=== PATIENT | female | born 1955 | race Caucasian/White ===

== ENCOUNTER 2024-12-01 09:15 | Inpatient (IN) | payer MEDICARE, SELFPAY ==
[2024-11-28 14:54] VITALS: BMI 27.1
[2024-11-28 15:21] VITALS: BP 112/80
[2024-11-28 15:49] VITALS: BP 115/86
[2024-11-28 16:00] VITALS: BP 106/73
--- NOTE | 2024-11-28 16:57 | ED.GENMED ---
History of Present Illness
General
Chief Complaint: Fever
Source: patient
Exam Limitations: none
Time Seen by Provider: 11/28/24 16:29
Nursing documentation reviewed up to this point in time: agreed with
History of Present Illness
History of Present Illness:
68 yo female presents emerged part due to a fever. History of alcohol abuse, poor historian. She comes from [facility], where her oxygen was 84 to 89% on room air and her temperature was 104.
Past History
Past History
ED Past Medical History: HTN, Hypercholesterolemia, NIDDM and Other (Anemia, alcohol dependence with delirium)
ED Past Surgical History: None
Social History
Tobacco: Non-smoker
Alcohol: Chronic alcoholic
Drug: None
Living: with family
Review of Systems
Review of Systems
Allergies reviewed?: Yes
All Other Systems: Not applicable
Constitutional: Reports fever
EENT: Reports no symptoms
Respiratory: Reports cough and trouble breathing
Cardiac: Reports no symptoms
ABD/GI: Reports no symptoms
: Reports no symptoms
Musculoskeletal: Reports no symptoms
Skin: Reports no symptoms
Neurological: Reports no symptoms
Endocrine: Reports no symptoms
Hematologic/Lymphatic: Reports no symptoms
Psychiatric: Reports no symptoms
Phy Exam
Physical Exam
Physical Exam:
Physical Exam
General: Temperature 99.8
Neck: supple. no meningeal signs. normal posterior pharynx
Heart: s1/s2 regular rate and rhythm, no murmur. equal radial
pulses.
HEENT: Pupils equal round reactive to light, EOMI
Lungs: no acute respiratory distress. clear bilaterally
Abdomen: normal bowel sounds. not tender. no CVAT
Neuro: alert and oriented to person. no focal neurological deficits cranial nerves II through XII intact
Skin: no rash
Psychiatric: well kept. interactive and cooperative
Extremities: no edema. no calf tenderness. negative homans. good distal pulses
Course
Orders/Labs/Results
Orders:
Orders
11/28/24 16:24
Cardiac Monitoring- Treatment ONCE
O2 Therapy [RESP] Urgent
Titrate/Wean O2 to maintain O2 sat greater than (%): 93
Special Instructions: TO MAINTAIN CONTINUOUS O2 SATS > OR = 93%
Pulse Ox/cont/shift [RESP] Urgent
Quantity: 1
Special Instructions: CONTINUOUS
11/28/24 16:36
CR Chest - 2 Views Urgent
Comment:
Reason For Exam: fever, hypoxia
11/28/24 17:15
CMP [Comprehensive Metabolic Panel] Urgent
COVID-19 Antigen Routine
Source: Nasal Swab
Complete Blood Count/With Diff Urgent
Lactic Acid Q4H
Comment: ON ICE, CANCEL 2ND ORDER IF FIRST LACTIC ACID LEVEL <2
Blood Culture Q20M
ART Source: Blood/Venous
Specimen Description:
Comment: Urgent from separate sites. If patient screens positive for possible sepsis
Influenza A+B Rapid Molecular Routine
ART Source: Nasal Swab
Specimen Description:
11/28/24 18:09
Blood Culture Q20M
ART Source: Blood/Venous
Specimen Description:
Comment: Urgent from separate sites. If patient screens positive for possible sepsis
11/28/24 18:12
Acetaminophen [Tylenol] 650 mg PO NOW STA
Piperacillin/Tazo 4.5 Gram [Zosyn] 4.5 gram in 100 ml IV NOW
11/28/24 19:08
Vancomycin [Vancocin] 1,500 mg 0.9% Sodium Chloride 500 ml [Nss] 500 ml IV NOW
Abnormal Lab Results
11/28/24
17:15
WBC 12.7 H 10^3/uL
(4.8-10.8)
RBC 4.03 L 10^6/uL
(4.20-5.40)
MCHC 32.7 L g/dL
(33.0-37.0)
Abs Immat Gran (auto) 0.1 H 10^3/uL
(0-0.05)
Absolute Neuts (auto) 10.7 H 10^3/uL
(1.4-6.5)
Absolute Monos (auto) 0.7 H 10^3/uL
(0.1-0.6)
Neutrophils % 84.3 H %
(42.2-75.2)
Lymphocytes % 9.6 L %
(20.5-51.1)
Sodium 134 L mmol/L
(135-145)
Creatinine 0.5 L mg/dL
(0.6-1.0)
Glucose 113 H mg/dl
(70-99)
11/28/24 17:15
11/28/24 17:15
Vital Signs
Initial and Last Documented VS:
Initial Vital Signs
Temp Pulse Resp BP Pulse Ox
99.8 F 111 20 112/80 96
11/28/24 15:21 11/28/24 15:21 11/28/24 15:21 11/28/24 15:21 11/28/24 15:21
Last Documented Vital Signs
Temp Pulse Resp BP Pulse Ox
100.5 F H 120 24 120/75 98
11/28/24 19:16 11/28/24 19:17 11/28/24 19:17 11/28/24 19:17 11/28/24 16:00
MDM/Problems Addressed
Differential Diagnosis Includes:
Pneumonia, CHF
MDM/Problems Addressed:
[id number] female with bilateral pneumonia, hypoxia. IV Zosyn and vancomycin given. Admitted to hospitalist.
Chronic conditions affecting care: HTN
*Radiology
Radiology exam reviewed: radiology read reviewed (Chest x-ray bilateral pneumonia)
*Pulse Oximetry
Patient hypoxic: yes
*Agency Trainer Interpretation
Rate: tachycardiac
Interpretation: abnormal
Heart Rate: 111
Rhythm: sinus tachycardia
*Critical Care Note
Total Time (30-74mins, 75-104mins- exclusive of procedures): Not Applicable
Data Reviewed
Further Testing Considered But Not Given:
CT chest not indicated
Patient Management
Social determinants of health affecting care: Living situation and Substance abuse (Prior alcohol abuse)
Discussion with other providers: Hospitalist
Escalation/DeEscalation of care consider admission/obs:
Admit indicated
ED Attending Note
-
Portions of this chart may have been created with voice recognition software.� Occasional wrong word or��sound alike� substitutions may have occurred due to the inherent limitations of voice recognition software.
Discharge Plan
Departure
Patient Disposition: Admit
Date of Disposition: 11/28/24
Time of Disposition: 18:16
Admit to: Telemetry
Presentation/result/management discussed w/ accepting MD/DO: Hospitalist
Patient with high blood pressure during this ER visit?: No
Condition: Fair
Covid-19: Negative COVID-19
Discharge Problem:
Pneumonia, Hypoxia
Prescriptions:
No Action
atorvastatin 40 mg Tablet
40 mg PO HS
clonidine HCl 0.1 mg Tablet
0.1 mg PO Q12H
acetaminophen 325 mg Tablet
650 mg PO Q4H MDD 3000mg PRN (Reason: mild pain,temp>101)
bisacodyl 10 mg Suppository
10 mg ND DAILY PRN (Reason: no BM in 24 hours after MOM)
Fleet Enema 19-7 gram/118 mL Enema
118 ml ND DAILYPRN PRN (Reason: no BM in 24 hours after Bisacodyl suppository)
folic acid 1 mg Tablet
1 mg PO DAILY
gabapentin 100 mg Capsule
200 mg PO Q8H
insulin lispro 100 unit/mL Insulin Pen
1 sliding scale dose SC ACHS
Rx Instructions:
150-200=2 units
201-250=4 units
251-300=6 units
301-350=8 units
351-400=10 units
diclofenac sodium 1 % Gel
2 g TOPICAL Q6HPRN PRN (Reason: bilateral hands)
thiamine HCl (vitamin B1) 100 mg Tablet
100 mg PO DAILY
triamcinolone acetonide 0.1 % Cream
1 applic TOPICAL BID
Rx Instructions:
Apply to the back and leg rash for 2 weeks. Start date 11/24/24.
magnesium hydroxide 400 mg/5 mL Suspension
30 ml PO [id number] PRN (Reason: constipation)
metformin 500 mg Tablet Extended Release 24hr
500 mg PO DAILY
cholecalciferol (vitamin D3) [Vitamin D3] 25 mcg (1,000 unit) Tablet
25 mcg PO DAILY
Referrals:
Dion De Oliveira MD [Family Provider] -
Interventions
Interventions:
*Risk Screen - Suicide Last Done: 11/28/24 15:21
*General Assessment Last Done: 11/28/24 15:27
*Neglect/Abuse Screening Last Done: 11/28/24 15:27
*ED- Fall Risk Assessment Last Done: 11/28/24 18:57
*ED COVID-19 Vaccine History Last Done: 11/28/24 18:50
ED- Neurological Assessment Last Done: 11/28/24 19:24
ED-Skin Assessment Last Done: 11/28/24 19:24
Discharge Date and Time
Print Language: FAROESE
[2024-11-28 17:29] LABS: % Basophils 0.4 % (0-2); % Eosinophils 0.1 % (0-6); % Immature Granulocytes 0.4 % (0-0.5); % Lymphocytes 9.6 % (20.5-51.1); % Monocytes 5.2 % (1.7-9.3); % Neutrophils 84.3 % (42.2-75.2); Absolute Basophils 0.1 10^3/uL (0-0.2); Absolute Immature Granulocytes 0.1 10^3/uL (0-0.05); Absolute Lymphocytes 1.2 10^3/uL (1.2-3.4); Absolute Monocytes 0.7 10^3/uL (0.1-0.6); Absolute Neutrophils 10.7 10^3/uL (1.4-6.5); Hematocrit 37.6 % (37.0-47.0); Hemoglobin 12.3 g/dL (12.0-16.0); Mean Corp Hgb Conc. 32.7 g/dL (33.0-37.0); Mean Corpuscular Hgb 30.5 pg (27.0-31.0); Mean Corpuscular Volume 93.3 fL (81.0-99.0); Mean Platelet Volume 9.8 fL (7.4-10.4); Nucleated Red Blood Cells % 0 %; Platelet Count 359 10^3/uL (130-400); Red Blood Cell Count 4.03 10^6/uL (4.20-5.40); Red Cell Dist. Width 14.2 % (11.5-14.5); White Blood Cell Count 12.7 10^3/uL (4.8-10.8)
[2024-11-28 17:41] LABS: Lactic Acid 1.3 mmol/L (0.7-2.0)
[2024-11-28 17:42] LABS: ALT (SGPT) 15 U/L (0-35); AST (SGOT) 25 U/L (14-36); Albumin 3.5 g/dl (3.5-5.0); Alkaline Phosphatase 99 U/L (38-126); Blood Urea Nitrogen 10 mg/dl (7-17); Calcium 9.1 mg/dl (8.4-10.2); Carbon Dioxide 26 mmol/L (22-30); Chloride 98 mmol/L (98-107); Estimated Creatinine Clearance 80 ml/min; Glucose 113 mg/dl (70-99); Potassium 3.9 mmol/L (3.5-5.1); Sodium 134 mmol/L (135-145); Total Protein 6.4 g/dl (6.3-8.2); eGFR > 60.00
[2024-11-28 18:05] LABS: COVID-19 Antigen Negative (Negative)
[2024-11-28] MEDS: TYLENOL 650 MG PO (18:39)
[2024-11-28] MEDS: ZOSYN 100 IV (18:40)
--- NOTE | 2024-11-28 19:06 | EDRN ---
Called pharmacy for vancomycin
[2024-11-28 19:17] VITALS: BP 120/75
[2024-11-28] MEDS: VANCOCIN 530 MG IV (19:23)
--- NOTE | 2024-11-28 19:42 | EDRN ---
Pt oriented to self only, does not know where she is, why she is here or time. Pt denies pain. No sob/cp. Found pt with Purewick not in place and incontinent of urine. Pt log rolled herself without assistance, perineal care provided, chux pad
placed and purewick placed. Pt repositioned in bed for comfort, states she is tired and wants to go to sleep.
[2024-11-28 20:00] VITALS: BP 119/82
--- NOTE | 2024-11-28 21:13 | HPS.HSE ---
Family Physician
-
Family Physician: Dion De Oliveira MD
Chief Complaint
-
Fever
History of Present Illness
Patient is a 68-year-old woman with past medical history significant for essential hypertension, hyperlipidemia, rue-apgeprg-qhstygmkt diabetes, anemia, alcohol dependence with history of delirium tremens, who presents to the emergency department
secondary to fever. She comes from a nursing facility where her oxygen was noted to be 84 to 89% on room air and her temperature was 104. Currently she is denying any shortness of breath, no chest pain no nausea vomiting no diarrhea no dysuria no
bleeding no bleeding, no bruising. Per the ED provider the family states they are unclear as to her current drinking status that she has been in a nursing facility and denies active alcohol intake.
Treatment in the emergency department included IV vancomycin IV Zosyn and Tylenol
Abnormal labs include WBC 12.7, sodium 134, glucose 113
SARS Cov 2 antigen negative
Chest x-ray shows mild bibasilar pneumonia
Medical History
Past Medical History
Past Medical History: Reports HTN, Hypercholesterolemia, NIDDM and Other (Anemia, alcohol dependence with delirium)
Past Surgical History: Reports None
Social History
Tobacco: Non-smoker
Alcohol: Chronic Alcoholic (Unclear when last drink was she is currently living in a detention facility)
Drug: None
Living: Usp
Family History
Family History: Not pertinent
Allergies / Home Medications
Allergies reflects when Allergies were last updated in [email or web address].
Home Medications with original date entered in [email or web address]
Allergy/Medication List:
Allergies
Allergy/AdvReac Type Severity Reaction Status Date / Time
No Known Allergies Allergy Verified 11/28/24 15:27
Home Medications
acetaminophen 325 mg tablet 650 mg PO Q4H PRN mild pain,temp>101 11/28/24
atorvastatin 40 mg tablet 40 mg PO HS 11/28/24
bisacodyl 10 mg rectal suppository 10 mg WV DAILY PRN no BM in 24 hours after MOM 11/28/24
cholecalciferol (vitamin D3) 25 mcg (1,000 unit) tablet (Vitamin D3) 25 mcg PO DAILY 11/28/24
clonidine HCl 0.1 mg tablet 0.1 mg PO Q12H 11/28/24
diclofenac sodium 1 % topical gel 2 g topical Q6HPRN PRN bilateral hands 11/28/24
folic acid 1 mg tablet 1 mg PO DAILY 11/28/24
gabapentin 100 mg capsule 200 mg PO Q8H 11/28/24
insulin lispro 100 unit/mL subcutaneous pen 1 sliding scale dose SC ACHS 11/28/24
magnesium hydroxide 400 mg/5 mL oral suspension 30 ml PO [id number] PRN constipation 11/28/24
metformin 500 mg tablet,extended release 24hr (osmotic) 500 mg PO DAILY 11/28/24
sodium phosphates 19 gram-7 gram/118 mL enema (Fleet Enema) 118 ml WV DAILYPRN PRN no BM in 24 hours after Bisacodyl suppository 11/28/24
thiamine HCl (vitamin B1) 100 mg tablet 100 mg PO DAILY 11/28/24
triamcinolone acetonide 0.1 % topical cream 1 applic topical BID 11/28/24
Review of Systems
-
A 12 point ROS was completed and negative except as noted: Yes
Physical Exam
Vital Signs
Vital Signs
Temp Pulse Resp BP Pulse Ox
100.5 F H 103 22 119/82 98
11/28/24 19:16 11/28/24 20:00 11/28/24 20:00 11/28/24 20:00 11/28/24 16:00
Physical Exam
General: Well Nourished, Comfortable, Conversant and Appears Chronically Ill
Respiratory: Other (Decreased breath sounds decreased breath sounds)
Cardiac: S1/S2 and Regular Rhythm
GI: Soft, Non Tender and Non Distended
Musculoskeletal: No Clubbing, No Cyanosis and No Edema
Skin: Warm
Neuro: No Motor Deficits, Nonfocal/grossly intact and Other (she is confused, unsure of baseline mentation)
Psych: Calm
Laboratory Results
-
11/28/24 17:15
11/28/24 17:15
Laboratory Results
Lactic Acid Cancelled 11/28/24 20:30
Total Bilirubin 1.0 mg/dl (0.2-1.3) 11/28/24 17:15
AST 25 U/L (14-36) 11/28/24 17:15
ALT 15 U/L (0-35) 11/28/24 17:15
Alkaline Phosphatase 99 U/L (38-126) 11/28/24 17:15
Data Reviewed
-
Diagnostic Radiology: Image Personally Visualized and interpreted and Report Reviewed by me
Lab Data: Labs Reviewed by me
Impression/Plan
-
IMPRESSION:
Patient is a 68-year-old woman with past medical history significant for essential hypertension, hyperlipidemia, frm-bkhugot-nphkqlztn diabetes, anemia, alcohol dependence with history of delirium tremens, who presents to the emergency department
secondary to fever. She comes from a nursing facility where her oxygen was noted to be 84 to 89% on room air and her temperature was 104. Currently she is denying any shortness of breath, no chest pain no nausea vomiting no diarrhea no dysuria no
bleeding no bleeding, no bruising. Per the ED provider the family states they are unclear as to her current drinking status that she has been in a nursing facility and denies active alcohol intake.
Treatment in the emergency department included IV vancomycin IV Zosyn and Tylenol
Abnormal labs include WBC 12.7, sodium 134, glucose 113
SARS Cov 2 antigen negative
Chest x-ray shows mild bibasilar pneumonia
# Health care associated pneumonia, gram-negative bacteria, associated with hypoxia 84 to 89% on room air
- The patient lives in a detention facility and and is at higher risk for healthcare associated pneumonia, will continue the IV vancomycin IV Zosyn started in the emergency department
-Sputum cultures, blood cultures pending
- Continue oxygen per nasal cannula and wean per protocol
-Continue supportive measures and respiratory therapy
# History of alcohol abuse and delirium tremens, the family notes that she has not had any drinks recently that they know about per discussion with the ED provider
-Monitor for signs of alcohol withdrawal low threshold to add alcohol withdrawal protocol essential hypertension essential hypertension
-continue gabapentin, thiamine, folate
# essential hypertension
- Continue clonidine and with hold parameters
# Hyperlipidemia
-Continue statin
#NIDDM
-monitor glucose
-SSI
-metformin
DVT proph-lovenox
Full Code
[2024-11-28 22:00] VITALS: BP 113/72
[2024-11-29] VITALS (8 sets, daily range): BP systolic 111–161; BP diastolic 66–103; PULSE 103; O2SAT 97; BMI 24.0
[2024-11-29] MEDS: ZOSYN 50 IV ×5 (01:04→23:30)
[2024-11-29] MEDS: NSS 1000 IV (01:06)
[2024-11-29] MEDS: LIPITOR 40 MG PO ×2 (02:17→20:54)
[2024-11-29] MEDS: TYLENOL 650 MG PO (02:17)
[2024-11-29] MEDS: NEURONTIN 200 MG PO ×4 (02:17→23:30)
[2024-11-29] MEDS: CATAPRES 0.1 MG PO ×3 (02:18→23:30)
--- NOTE | 2024-11-29 02:52 | PTCARENOTE ---
Pt received as ED hold on stretcher. AAOx2 (time) drowsy, laughing inappropriately at times, very poor historian. Telemetry = SR. Admission and assessment completed (refer to worklist). Plan of care discussed. Pt hot to touch, oral temp 99.6.
Rechecked 103.2, PRN tylenol given (refer to MAR). NSS infusing via #20 RAC - no/no in place to prevent occlusion. Purewick external catheter maintained. Call smith w/in reach, safe environment maintained.
[2024-11-29 05:53] LABS: % Basophils 0.7 % (0-2); % Eosinophils 0.3 % (0-6); % Immature Granulocytes 0.5 % (0-0.5); % Lymphocytes 10.2 % (20.5-51.1); % Monocytes 7.4 % (1.7-9.3); % Neutrophils 80.9 % (42.2-75.2); Absolute Basophils 0.1 10^3/uL (0-0.2); Absolute Lymphocytes 0.9 10^3/uL (1.2-3.4); Absolute Monocytes 0.6 10^3/uL (0.1-0.6); Hematocrit 33.2 % (37.0-47.0); Hemoglobin 10.9 g/dL (12.0-16.0); Mean Corp Hgb Conc. 32.8 g/dL (33.0-37.0); Mean Corpuscular Hgb 30.1 pg (27.0-31.0); Mean Corpuscular Volume 91.7 fL (81.0-99.0); Mean Platelet Volume 10.1 fL (7.4-10.4); Nucleated Red Blood Cells % 0 %; Platelet Count 343 10^3/uL (130-400); Red Blood Cell Count 3.62 10^6/uL (4.20-5.40); White Blood Cell Count 8.7 10^3/uL (4.8-10.8)
[2024-11-29 06:09] LABS: Blood Urea Nitrogen 11 mg/dl (7-17); Carbon Dioxide 25 mmol/L (22-30); Chloride 104 mmol/L (98-107); Estimated Creatinine Clearance 80 ml/min; Glucose 108 mg/dl (70-99); Potassium 3.6 mmol/L (3.5-5.1); Sodium 138 mmol/L (135-145); eGFR > 60.00
--- NOTE | 2024-11-29 06:25 | PTCARENOTE ---
Purewick catheter removed at this time, pt more alert.
[2024-11-29 08:37] LABS: Glucose - Point of Care 84 mg/dl (70-99)
[2024-11-29 08:38] LABS: Alcohol None Detected
[2024-11-29] MEDS: VITAMIN B1 100 MG PO (08:44)
[2024-11-29] MEDS: FOLVITE 1 MG PO (08:44)
[2024-11-29 09:00] LABS: Glycohemoglobin (HgbA1c) 4.6 % (4.0-5.6)
[2024-11-29] MEDS: TRIAMCINOLONE ACETONIDE 0.1% CREAM TOPICAL ×2 (09:04→20:54)
[2024-11-29 10:10] LABS: Iron 27 ug/dl (37-170)
[2024-11-29 10:24] LABS: Percent Saturation 10 % (20-50); Total Iron Binding Capacity 250 ug/dl (265-497)
--- NOTE | 2024-11-29 11:03 | PHA.VAN.IN ---
Assessment
- Assessment
Renal Function: Unknown baseline
Maximum Temperature: 103.2 (11/29/24 @ 02:23)
Concomitant Antimicrobials: pip/tazo
AUC Dosing Plan
- Dosing Variables
Dosing Weight (kg): 65
Dosing CrCl (ml/min): 80
Vd coefficient (L/kg): 0.7
- Empiric Dosing
Initial / Loading Dose: 1500 mg 11/28/24 ~1900
Maintenance Regimen: 750 mg q12h to start now
Estimated AUC (mcg*h/mL): 482
Estimated Peak (mcg*h/mL): 28.8
Estimated Trough (mcg/ml): 13.2
Estimated Half Life (H): 9.8
- Monitoring
No levels ordered at this time: consider levels when pt reaches steady state
Pharmacokinetics Vancomycin I
- -
Patient Age: 68
Patient Sex: Female
Vancomycin Day #: 1
Indication: Pulmonary/Respiratory
Requesting Provider: Nehemiah
Height / Weight:
Height 5 ft 1 in
Actual Weight 65.1 kg
Pertinent Past Medical History: ETOH abuse
- Vital Signs / Lab Results
Temp Pulse Resp BP Pulse Ox
98.9 F 89 17 123/91 100
11/29/24 06:24 11/29/24 06:15 11/29/24 06:15 11/29/24 06:15 11/29/24 08:13
Lab Results - Hematology
11/28/24 11/29/24
17:15 05:28
WBC 12.7 H 8.7
Lab Results - Chemistry
11/28/24 11/29/24
17:15 05:28
BUN 10 11
Creatinine 0.5 L 0.5 L
Estimated Creat Clear 80 80
Albumin 3.5
11/28/24 11/28/24
17:15 20:30
Lactic Acid 1.3 Cancelled
Microbiology Results
11/29/24 05:28 Legionella Urinary Antigen - Final
Urine Negative for Legionella pneumophila Serogroup 1 antigen.
A negative result does not rule out the possiblity of
Legionella infection due to other serogroups or species of
Legionella. Clinical correlation is recommended.
11/28/24 17:15 Influenza Types A & B (ARPITA) - Final
Nasal Swab Negative for Influenza A & B, NAAT
Negative results must be combined with clinical observations
and patient history.
Nucleic Acid Amplification test (NAAT)performed on the
[employer] platform.
--- NOTE | 2024-11-29 11:04 | CM ---
Initial assessment completed with son/primary contact, Fareed, via phone # [phone]; MCGILL form explained to son; form dated/timed @ 1100
Son reported that mother was admitted to [facility] 2 weeks ago
PLOF: does not ambulate; mobilized via wheelchair; requires assistance with personal care
Plan: son reported that his mother will return to [facility] when medically stable; CM will monitor for needs/services
[2024-11-29] MEDS: VANCOCIN 150 IV ×2 (11:20→20:54)
[2024-11-29 12:30] LABS: Folate > 20.0 ng/ml (2.76-20); Vitamin B12 289 pg/ml (239-931)
[2024-11-29 12:38] LABS: Glucose - Point of Care 110 mg/dl (70-99)
--- NOTE | 2024-11-29 13:20 | W.PN.HOSP.TC ---
Addendum entered and electronically signed by Salvador Woody MD, Resident 11/29/24 15:05:
After speaking with son (please see update note), the 'Suspected dementia' impression should be changed to 'Wernicke encephalopathy'. That is the patient's baseline.
Original Note:
Today's Communication/Plan
-
* Continue antibiotics.
* Wean oxygen as tolerated.
* Incentive spirometry.
* MRSA screen.
* Check urine studies.
* Antipyretics and supplementation.
Assessment / Plan
Assessment / Plan
Assessment
Joyce Pineda, 68-year-old female, was brought to the hospital from [facility] (where she was admitted 2 weeks ago). She was found to be hypoxic and febrile. In the emergency, she was started on vancomycin and piperacillin-tazobactam for
presumed healthcare-associated pneumonia given her hypoxia.
Impression and plan
Sepsis secondary to suspected healthcare-associated pneumonia
- T-max of 103.2 F on 11-29-24; requiring 2L via NS.
- Day 2 of antibiotics; continue vancomycin and piperacillin-tazobactam.
- MRSA screen pending; can discontinue the former if negative.
- Sputum and blood cultures pending.
- Wean oxygen as tolerated; incentive spirometry.
Suspected dementia
Ambulatory dysfunction
- In long-term care/memory care, per son.
- Needs wheelchair to ambulate and requires assistance.
- PT-OT.
Type II diabetes mellitus
- Cover with SSI; hold metformin.
Primary hypertension
- Continue clonidine with hold parameters.
Hyperlipidemia
- Continue high-intensity statin.
Peripheral neuropathy
- Continue gabapentin.
History of alcohol use disorder
History of delirium tremens
- No drinking reported and serum alcohol negative.
- Monitor for withdrawal but unlikely.
- Continue folate, thiamine and cyanocobalamin.
B12 deficiency
- Continue supplementation.
Chronic constipation
- Bowel regimen as needed.
Thromboprophylaxis
- Enoxaparin.
Code status
- Full.
Primary contact
- Fareed (son).
Anticipated Discharge: 24 - 48 hours
Subjective/Interval History
-
Date of Service: November 29, 2024
Confused this morning. Unclear if this is her baseline.
Objective Data
-
Labs:
Laboratory Results
11/29/24
05:28
WBC 8.7
Hgb 10.9 L
Hct 33.2 L
Plt Count 343
Sodium 138
Potassium 3.6
Chloride 104
Carbon Dioxide 25
BUN 11
Creatinine 0.5 L
Glucose 108 H
Calcium 9.0
Vital Signs:
Vital Signs
Temp Pulse Resp BP Pulse Ox
98.9 F 91 17 143/92 100
11/29/24 06:24 11/29/24 13:03 11/29/24 06:15 11/29/24 13:03 11/29/24 08:13
I&O
11/28/24 11/29/24 11/30/24
06:59 06:59 06:59
Intake Total 900 / 900
Output Total 1000 / 1000
Balance -100 / -100
Review of Systems
-
History Source: Patient
Constitutional: Reports No Symptoms
EENT: Reports No Symptoms Reported
Respiratory: Reports Cough and Trouble Breathing
Cardiac: Reports No Symptoms
Abdomen/GI: Reports No Symptoms
Breast: Reports No Symptoms
Genitourinary: Reports No Symptoms
Musculoskeletal: Reports No Symptoms
Skin: Reports No Symptoms
Neuro: Reports No Symptoms
Endocrine: Reports No Symptoms
Hematologic / Lymphatic: Reports No Symptoms
Allergy / Immunology: Reports No Symptoms
Physical Exam
-
General: No Apparent Distress and Comfortable
HEENT: Normocephalic, Atraumatic, Moist Mucous Membranes, Anicteric and No Ptosis
Respiratory: Clear to Auscultation and Non Labored Respirations
Cardiac: Regular Rhythm and S1/S2
GI: Soft, Nontender and Nondistended
Genito-urinary: No Costovertebral Tender
Musculoskeletal: No Clubbing, No Cyanosis and No Edema
Skin: Warm, Dry and IV Access / Catheter Site
Neuro: Awake, Alert, No Motor Deficits and Nonfocal/Grossly Intact; Negative Oriented
Hematologic / Lymphatic: No Lymphadenopathy
Psych: Calm and Confused
--- NOTE | 2024-11-29 15:01 | W.PN.UPDATE ---
Update Note
Progress Note Update
Spoke to her son (next of kin) at great length.
Her current mental status is her baseline. Extensive history of alcohol use: about 1L a day for decades. Quit 3 weeks ago when a welfare check found her inebriated in bed and unkempt in her room. Subsequently went to [facility] for
withdrawal, where she was for 10 days. Then discharged to [facility], possibly for long-term care.
Family is trying to get her to a different long-term care at [facility] (or a better facility).
[2024-11-29 17:35] LABS: Glucose - Point of Care 135 mg/dl (70-99)
[2024-11-29] MEDS: VITAMIN B-12 PO (17:59)
[2024-11-29] MEDS: LOVENOX 40 MG SC (17:59)
[2024-11-29] MEDS: FLUSH (NSS) 1 FLUSH IV (18:00)
--- NOTE | 2024-11-29 18:15 | PTCARENOTE ---
Received pt from ER via stretcher, accompanied by ER staff. Pt awake and alert, oriented to self/place only; confused conversation; pleasant and cooperative. ELLIOTT well, able to transfer to bed with assistance; unsteady with OOB activity. VSS.
telemetry:Sinus tachy. On nc 2 lpm- pulse ox 97%, pt with (+) slight COTO; denies SOB. Abd soft, rounded, to start 1800 isaac diet. Pt DTV; commode at bedside. Oriented to 4east, currently resting in bed. Will continue to monitor.
[2024-11-29] MEDS: VITAMIN B-12 1000 MCG PO (18:56)
[2024-11-29 21:57] LABS: Glucose - Point of Care 151 mg/dl (70-99)
[2024-11-30 03:55] VITALS: BP 135/88
[2024-11-30] MEDS: VANCOCIN 150 IV (05:43)
[2024-11-30] MEDS: ZOSYN 50 IV ×2 (05:43→12:32)
[2024-11-30 06:41] LABS: Hematocrit 32.5 % (37.0-47.0); Hemoglobin 10.9 g/dL (12.0-16.0); Mean Corp Hgb Conc. 33.5 g/dL (33.0-37.0); Mean Corpuscular Hgb 30.4 pg (27.0-31.0); Mean Corpuscular Volume 90.8 fL (81.0-99.0); Mean Platelet Volume 10.5 fL (7.4-10.4); Platelet Count 369 10^3/uL (130-400); Red Blood Cell Count 3.58 10^6/uL (4.20-5.40); White Blood Cell Count 6.9 10^3/uL (4.8-10.8)
[2024-11-30 07:00] VITALS: BP 124/87
[2024-11-30 07:04] LABS: Blood Urea Nitrogen 12 mg/dl (7-17); Calcium 8.9 mg/dl (8.4-10.2); Carbon Dioxide 26 mmol/L (22-30); Chloride 105 mmol/L (98-107); Estimated Creatinine Clearance 70 ml/min; Glucose 114 mg/dl (70-99); Potassium 3.5 mmol/L (3.5-5.1); Sodium 137 mmol/L (135-145); eGFR > 60.00
--- NOTE | 2024-11-30 08:20 | W.PN.HOSP.TC ---
Addendum entered and electronically signed by Sharad Mane MD 11/30/24 12:50:
I saw and evaluated the patient. I reviewed the resident�s note and agree with findings and plan as documented in the resident�s note.
1. Sepsis -leukocytosis/fever at POA -initially suspected to be pneumonia and patient being treated with broad-spectrum antibiotic. Chest x-ray did not show any significant overt infiltrate in my opinion. Rule out potential any other source, UA
still pending. No reported sacral wound. Blood culture remains negative till date.
2. History of alcohol use disorder -patient in shelter for some time although poor historian, unsure if patient have any cognitive changes with chronic alcohol use. No family to provide history.
3. Essential hypertension -continue home regimen of medication
4. Hyperlipidemia -continue statin therapy
5. NIDDM -maintain on diabetic diet/insulin sliding scale
If urine clear and blood pressure remains negative for 48 hours can be discharged tomorrow on short course of empiric abx.
Original Note:
Today's Communication/Plan
-
Continue antibiotics, wait on MRSA screen for changing antibiotics. Continue weaning off of supplemental oxygen. Start iron supplementation. Continue vitamin supplementation. Monitor for any worsening symptoms.
Assessment / Plan
Assessment / Plan
Assessment
68-year-old female with past medical history of essential hypertension, hyperlipidemia, sif-etwcgsd-fiooqezfa diabetes, anemia, alcohol dependence history presented to the [facility] ED on 11/28/2024 due to recent fever and hypoxia. Patient was
started on IV vancomycin and IV Zosyn in the ED as she had leukocytosis and was febrile with suspicion of sepsis due to possible healthcare associated pneumonia. Patient continued to improve and her respiratory function recovered. Patient has not
had any alcohol for 3 weeks now and right now family is trying to get her to a different long-term facility than [facility] such as [facility].
Plan
#Sepsis POA secondary to suspected healthcare-associated pneumonia
- Leukocytosis on presentation, WBC trended down and no longer has leukocytosis
- T-max of 103.2 F on 11-29-24; requiring 2L via NS can now wean off
- Wean oxygen as tolerated; incentive spirometry.
- UA today, no dysuria. Negative for Legionella (No urine collected)
- No further fevers since admission
- Day 3 of antibiotics, can discontinue vancomycin if MRSA screen negative
- Blood cultures negative
#Possible Wernicke's Encephalopathy secondary to Alcohol dependence history
#Ambulatory dysfunction
- In long-term care/memory care, per son.
- Needs wheelchair to ambulate and requires assistance.
- PT-OT evaluation today
#Type II diabetes mellitus
- Holding metformin, insulin sliding scale, Accu-Cheks
#Anemia of Chronic disease
-Low Iron, Low TIBC, High Ferritin, Low % Sat
-Start on supplemental Iron (PO)
#Essential hypertension
- Continue clonidine with hold parameters.
#Hyperlipidemia
- Continue high-intensity statin.
#Peripheral neuropathy
- Continue gabapentin.
#History of alcohol use disorder
#History of delirium tremens
- serum alcohol negative.
- Monitor for withdrawal but unlikely.
- As per son patient has been sober for three weeks now
- Continue folate, thiamine and cyanocobalamin.
#B12 deficiency
- Continue supplementation.
#Chronic constipation
- Bowel regimen as needed.
DVT Prophylaxis: Lovenox
Full Code
Anticipated Discharge: Within 24 hours
Subjective/Interval History
-
Date of Service: November 30, 2024
Patient reports that she has been doing well, reports no acute events overnight. Has not had any problems with breathing, reports no symptoms such as shortness of breath, chest pain, nausea or vomiting.
Objective Data
-
Labs:
Laboratory Results
11/30/24
06:10
WBC 6.9
Hgb 10.9 L
Hct 32.5 L
Plt Count 369
Sodium 137
Potassium 3.5
Chloride 105
Carbon Dioxide 26
BUN 12
Creatinine 0.5 L
Glucose 114 H
Calcium 8.9
Vital Signs:
Vital Signs
Temp Pulse Resp BP Pulse Ox
98.8 F 91 20 124/87 96
11/30/24 07:00 11/30/24 07:00 11/30/24 07:00 11/30/24 07:00 11/30/24 07:00
I&O
11/29/24 11/30/24 12/01/24
06:59 06:59 06:59
Intake Total 900 / 900 170 / 170
Output Total 1000 / 1000 0 / 0
Balance -100 / -100 170 / 170
Review of Systems
-
History Source: Patient
Constitutional: Denies Fever, Fatigue or Chills
EENT: Reports No Symptoms Reported
Respiratory: Denies Cough, Trouble Breathing or Wheezing
Cardiac: Denies Chest Pain or Palpitations
Abdomen/GI: Denies Abdominal Pain, Nausea or Vomiting
Genitourinary: Reports No Symptoms
Musculoskeletal: Reports No Symptoms
Skin: Reports No Symptoms
Neuro: Reports No Symptoms
Endocrine: Reports No Symptoms
Hematologic / Lymphatic: Reports No Symptoms
Physical Exam
-
General: Well Developed, Well Nourished, No Apparent Distress, Comfortable and Conversant
HEENT: Normocephalic and Atraumatic
Respiratory: Clear to Auscultation and Non Labored Respirations
Cardiac: Regular Rhythm and S1/S2
GI: Soft, Nontender and Nondistended
Musculoskeletal: No Clubbing, No Cyanosis and No Edema
Skin: Warm
Neuro: Awake, Alert, Oriented, No Motor Deficits and Nonfocal/Grossly Intact
Psych: Calm and Confused
Data Reviewed
-
Labs: Labs Reviewed by me, Discussed with Physician, Discussed with Nurse and Discussed with Patient
[2024-11-30 09:01] LABS: Glucose - Point of Care 124 mg/dl (70-99)
[2024-11-30] MEDS: NEURONTIN 200 MG PO ×2 (09:06→16:44)
[2024-11-30] MEDS: VITAMIN B-12 1000 MCG PO (09:06)
[2024-11-30] MEDS: VITAMIN B1 100 MG PO (09:06)
[2024-11-30] MEDS: FOLVITE 1 MG PO (09:06)
[2024-11-30 11:00] VITALS: BP 135/94
--- NOTE | 2024-11-30 11:50 | PTOTSP ---
ST Acute Care Evaluation
Pt currently presents with clinical signs of a functional oropharyngeal swallow. No overt s/s of penetration or aspiration were observed at bedside. No skilled dysphagia services warranted at this time.
Recommendations:
- Continue with regular solids, thin liquids, meds as tolerated.
- General aspiration precautions.
- C[employer] to sign off. Please reconsult if needed.
[2024-11-30 12:15] LABS: Glucose - Point of Care 143 mg/dl (70-99)
[2024-11-30] MEDS: TRIAMCINOLONE ACETONIDE 0.1% CREAM 1 APPLIC TOPICAL ×2 (12:32→21:33)
[2024-11-30] MEDS: CATAPRES 0.1 MG PO (12:32)
[2024-11-30 13:59] VITALS: BP 134/97; BP 156/96; PULSE 108; O2SAT 99
[2024-11-30 15:00] VITALS: BP 124/86
[2024-11-30] MEDS: UNASYN IV (16:44)
[2024-11-30] MEDS: LOVENOX 40 MG SC (16:44)
[2024-11-30 17:05] LABS: Glucose - Point of Care 137 mg/dl (70-99)
[2024-11-30 21:21] LABS: Glucose - Point of Care 134 mg/dl (70-99)
[2024-11-30] MEDS: LIPITOR 40 MG PO (21:34)
[2024-11-30 23:50] VITALS: BP 146/93
[2024-12-01] MEDS: NEURONTIN 200 MG PO ×4 (00:31→23:41)
[2024-12-01] MEDS: CATAPRES 0.1 MG PO ×3 (00:31→23:41)
[2024-12-01] MEDS: UNASYN IV ×4 (00:31→20:11)
[2024-12-01 03:02] VITALS: BP 112/72
[2024-12-01 06:53] VITALS: BP 117/68
[2024-12-01 08:24] LABS: Hematocrit 32.1 % (37.0-47.0); Hemoglobin 10.4 g/dL (12.0-16.0); Mean Corp Hgb Conc. 32.4 g/dL (33.0-37.0); Mean Corpuscular Volume 92.5 fL (81.0-99.0); Mean Platelet Volume 10.6 fL (7.4-10.4); Platelet Count 415 10^3/uL (130-400); Red Blood Cell Count 3.47 10^6/uL (4.20-5.40); Red Cell Dist. Width 14.1 % (11.5-14.5); White Blood Cell Count 6.6 10^3/uL (4.8-10.8)
[2024-12-01 08:32] LABS: Glucose - Point of Care 113 mg/dl (70-99)
[2024-12-01 09:05] LABS: Blood Urea Nitrogen 8 mg/dl (7-17); Calcium 8.9 mg/dl (8.4-10.2); Carbon Dioxide 25 mmol/L (22-30); Chloride 105 mmol/L (98-107); Estimated Creatinine Clearance 70 ml/min; Glucose 105 mg/dl (70-99); Potassium 3.6 mmol/L (3.5-5.1); Sodium 140 mmol/L (135-145); eGFR > 60.00
[2024-12-01] MEDS: VITAMIN B1 100 MG PO (09:34)
[2024-12-01] MEDS: VITAMIN B-12 1000 MCG PO (09:35)
[2024-12-01] MEDS: FOLVITE 1 MG PO (09:35)
[2024-12-01] MEDS: TRIAMCINOLONE ACETONIDE 0.1% CREAM 1 APPLIC TOPICAL ×2 (09:36→20:11)
[2024-12-01 12:15] LABS: Glucose - Point of Care 136 mg/dl (70-99)
[2024-12-01 15:18] VITALS: BP 140/79
--- NOTE | 2024-12-01 16:02 | W.PN.HOSP.TC ---
Addendum entered and electronically signed by Bobby Conit MD 12/01/24 23:14:
Attending Addendum-
I saw and evaluated the patient. I reviewed the resident�s note and agree with findings and plan as documented in the resident�s note. Sub: Patient is a poor historian. Confabulating events. Seen with JOAN present who states that she is POA as well.
Crying when reoriented. 'Im really at ?' No other complaints. Full 12 point ROS reviewed and negative except as documented Exam: Vitals reviewed in chart GEN-mild distress heart RRR Lungs clear abd soft LE no edema Neuro AAO x 1
#Possible Sepsis POA secondary to suspected healthcare-associated pneumonia
- Leukocytosis and fever on presentation
- Weaned off oxygen
- UA today-P
- No further fevers since admission
- procal - negative DC abx
- Blood cultures negative
#Likely Wernicke's Korsakoff Encephalopathy
#Ambulatory dysfunction
- last binge 3 weeks ago
- poor prognosis
- In long-term care/memory care
- Needs wheelchair to ambulate and requires assistance.
- cont thiamine
- PT-OT
#Type II diabetes mellitus
- Holding metformin, insulin sliding scale, Accu-Cheks
- restart on DC
#Anemia of Chronic disease
-cont supplemental Iron (PO)
#Essential hypertension
- Continue clonidine with hold parameters.
#Hyperlipidemia
- Continue high-intensity statin.
#Peripheral neuropathy
- Continue gabapentin.
#History of alcohol use disorder
#History of delirium tremens
- serum alcohol negative.
- Continue folate, thiamine and cyanocobalamin.
#B12 deficiency
- Continue supplementation.
#Chronic constipation
- Bowel regimen as needed.
DVT Prophylaxis: Lovenox
Full Code-d/w JOAN
DC to [facility] in am
Patient unable to consent to discuss, was with JOAN, time spent explanation of advance directives, changes in health status, patient�s health care wishes if the patient becomes unable to make health decisions, goals of care, code status, and
prognosis 'we're not ready to piull the plug but i cant take care of her I will discuss with her son'- 16 minutes
Time spent coordinating care, review of plan of care with resident, personally reviewed previous records in EMR, med rec, labs, radiology, d/w nursing, family total time documented is exclusive of any additional time listed that was spent in advance
care planning discussion -�53 minutes
Original Note:
Today's Communication/Plan
-
Pending UA w/ reflex to culture and Procalcitonin. Likely medically stable for discharge to tomorrow pending decision on abx coverage.
Assessment / Plan
Assessment / Plan
68 yo female who presented with complaints of hypoxia and fever
Plan to return to [facility] when medically stable.
#Sepsis, secondary to suspected healthcare-associated pneumonia
- Leukocytosis on presentation, with Tmax 103.2F. Has been afebrile x24hrs and leukocytosis has resolved
- BCx show [id number]. Repeat Cx pending. UA not drawn for some reason, will repeat. MRSA Nares invalid per path, will repeat.
- Currently on Unasyn...will order Procal to trend response to Abx (so far day 4). If negative, will consider stopping Abx as CXR was not terribly suggestive.
#Possible Wernicke's Encephalopathy secondary to Alcohol use
#Ambulatory dysfunction
- In long-term care/memory care, per son
- Needs wheelchair to ambulate at baseline and requires assistance
- PT/OT recommending Skilled Rehab 1-2 hrs/d
#History of alcohol use disorder
#History of delirium tremens
- serum alcohol negative
- Will c/t monitor for withdrawal, however unlikely
- As per son patient has been sober for three weeks now, blood etoh negative
- C/w folate, thiamine and cyanocobalamin
#NIDDM - Holding metformin, LDISS
#Anemia of Chronic disease - Serum Iron 27 L, TIBC 250 L, %Sat 10% L, Ferritin 284 H
#Essential hypertension - Continue clonidine with hold parameters
#Hyperlipidemia - Continue high-intensity statin
#Peripheral neuropathy - Continue gabapentin
#B12 deficiency - B12 289, c/w supplementation
#Chronic constipation - Bowel regimen as needed
Diet - 1800 isaac Diabetic Diet
DVT PPx - Lovenox
Code Status - Full Code
Anticipated Discharge: 24 - 48 hours
Objective Data
-
Labs:
Laboratory Results
12/01/24
06:37
WBC 6.6
Hgb 10.4 L
Hct 32.1 L
Plt Count 415 H
Sodium 140
Potassium 3.6
Chloride 105
Carbon Dioxide 25
BUN 8
Creatinine 0.4 L
Glucose 105 H
Calcium 8.9
Vital Signs:
Vital Signs
Temp Pulse Resp BP Pulse Ox
98.5 F 91 18 137/82 92
12/01/24 06:53 12/01/24 06:53 12/01/24 06:53 12/01/24 14:23 12/01/24 06:53
I&O
11/30/24 12/01/24 12/02/24
06:59 06:59 06:59
Intake Total 170 / 170 650 / 650
Output Total 0 / 0 200 / 200
Balance 170 / 170 450 / 450
[2024-12-01 16:57] LABS: Glucose - Point of Care 125 mg/dl (70-99)
[2024-12-01 16:58] LABS: Procalcitonin 0.15 ng/ml (0.0-0.25)
[2024-12-01] MEDS: LOVENOX 40 MG SC (17:28)
[2024-12-01] MEDS: LIPITOR 40 MG PO (20:11)
[2024-12-01 21:09] LABS: Glucose - Point of Care 126 mg/dl (70-99)
[2024-12-01 21:31] LABS: Urine Albumin 1+ (Neg - Trace); Urine Bilirubin Negative (Negative); Urine Character Clear (Clear); Urine Color Yellow; Urine Glucose Negative (Negative); Urine Ketone Negative (Negative); Urine Leukocyte 1+ (Negative); Urine Nitrite Negative (Negative); Urine Occult Blood Negative (Negative); Urine Specific Gravity 1.015 (<1.030); Urine Urobilinogen Negative (Neg - 1+)
[2024-12-01 21:42] LABS: Urine Red Blood Cell 0-2 /HPF (0-2); Urine Squamous Cell >30 /LPF (Few)
[2024-12-01 21:44] LABS: Amphetamines Negative (Negative); Barbiturates Negative (Negative); Benzodiazepines Negative (Negative); Buprenorphine Negative (Negative); Cocaine Negative (Negative); Marijuana Negative (Negative); Methadone Negative (Negative); Methamphetamines Negative (Negative); Opiates Negative (Negative); Phencyclidine Negative (Negative); Tricyclic Antidepressants Negative (Negative)
[2024-12-01 23:41] VITALS: BP 132/94
[2024-12-02 07:30] VITALS: BP 135/90
[2024-12-02 07:37] LABS: Glucose - Point of Care 121 mg/dl (70-99)
--- NOTE | 2024-12-02 07:45 | W.PN.HOSP.TC ---
Addendum entered and electronically signed by Bobby Conti MD 12/02/24 23:09:
Attending Addendum-
I saw and evaluated the patient. I reviewed the resident�s note and agree with findings and plan as documented in the resident�s note. Sub: Patient is a poor historian. Confabulating events. Upset when reoriented. 'Im really at I thought i was at
[employer]?' No other complaints. Full 12 point ROS reviewed and negative except as documented Exam: Vitals reviewed in chart GEN-NAD heart RRR Lungs clear abd soft LE no edema Neuro AAO x 1
#Possible Sepsis POA secondary to suspected healthcare-associated pneumonia
- Leukocytosis and fever on presentation
- Weaned off oxygen
- UA today-P
- No further fevers since admission
- procal - negative DC'd abx
- Blood cultures negative
#Likely Wernicke's Korsakoff Encephalopathy
#Ambulatory dysfunction
- last binge 3 weeks ago
- poor prognosis
- In long-term care/memory care
- Needs wheelchair to ambulate and requires assistance.
- cont thiamine
- PT-OT
#Type II diabetes mellitus
- Holding metformin, insulin sliding scale, Accu-Cheks
- restart on DC
#Anemia of Chronic disease
-cont supplemental Iron (PO)
#Essential hypertension
- Continue clonidine with hold parameters.
#Hyperlipidemia
- Continue high-intensity statin.
#Peripheral neuropathy
- Continue gabapentin.
#History of alcohol use disorder
#History of delirium tremens
- serum alcohol negative.
- Continue folate, thiamine and cyanocobalamin.
#B12 deficiency
- Continue supplementation.
#Chronic constipation
- Bowel regimen as needed.
DVT Prophylaxis: Lovenox
Full Code-d/w JOAN
DC to [facility]
Time spent coordinating care, DC planning, review of DC plan of care with resident, transition of care, review of records, med rec/scripts sent electronically, consults, notes, d/w consultants, nursing, family/SON on phone, and CM� 35 mins
Original Note:
Today's Communication/Plan
-
D/c today to [facility].
Assessment / Plan
Assessment / Plan
68 yo female who presented with complaints of hypoxia and fever
Plan to return to [facility] when medically stable.
#Sepsis, secondary to suspected healthcare-associated pneumonia
- Leukocytosis on presentation, with Tmax 103.2F. Has been afebrile x24hrs and leukocytosis has resolved
- BCx show NGx72 hours. MRSA nares negative. UA +LE but no bacteria, RBCs, nitrites. Afebrile x72 hours. Pro-calcitonin wnl
- Has already completed 4 days of IV antibiotics (Vancomycin x2d, Zosyn x2d, Unasyn x2d)
- No further need for Abx at this time.
#Possible Wernicke's Encephalopathy secondary to Alcohol use
#Ambulatory dysfunction
- In long-term care/memory care, per son
- Needs wheelchair to ambulate at baseline and requires assistance
- PT/OT recommending Skilled Rehab 1-2 hrs/d
- Cleared to go back to [facility]
#History of alcohol use disorder
#History of delirium tremens
- serum alcohol negative
- Will c/t monitor for withdrawal, however unlikely
- As per son patient has been sober for three weeks now, blood etoh negative
- C/w folate, thiamine and cyanocobalamin
#NIDDM - Holding metformin, LDISS
#Anemia of Chronic disease - Serum Iron 27 L, TIBC 250 L, %Sat 10% L, Ferritin 284 H
#Essential hypertension - Continue clonidine with hold parameters
#Hyperlipidemia - Continue high-intensity statin
#Peripheral neuropathy - Continue gabapentin
#B12 deficiency - B12 289, c/w supplementation
#Chronic constipation - Bowel regimen as needed
Diet - 1800 isaac Diabetic Diet
DVT PPx - Lovenox
Code Status - Full Code
Anticipated Discharge: Today
Subjective/Interval History
-
Date of Service: December 02, 2024
no acute complaints this morning. Still confused. oriented to person, but not place or time. no overnight events.
Objective Data
-
Labs:
Laboratory Results
12/02/24
06:36
WBC Pending
Hgb Pending
Hct Pending
Plt Count Pending
Sodium Pending
Potassium Pending
Chloride Pending
Carbon Dioxide Pending
BUN Pending
Creatinine Pending
Glucose Pending
Calcium Pending
Total Bilirubin Pending
AST Pending
ALT Pending
Alkaline Phosphatase Pending
Vital Signs:
Vital Signs
Temp Pulse Resp BP Pulse Ox
98.3 F 98 18 132/94 95
12/01/24 23:41 12/01/24 23:41 12/01/24 23:41 12/01/24 23:41 12/01/24 23:41
I&O
12/01/24 12/02/24 12/03/24
06:59 06:59 06:59
Intake Total 650 / 650 980 / 980
Output Total 200 / 200 150 / 150
Balance 450 / 450 830 / 830
Review of Systems
-
Unable to obtain full review of systems at this time due to: Other (Eduardo)
History Source: Patient
Constitutional: Reports No Symptoms
EENT: Reports No Symptoms Reported
Respiratory: Reports No Symptoms
Cardiac: Reports No Symptoms
Abdomen/GI: Reports No Symptoms
Breast: Reports No Symptoms
Genitourinary: Reports No Symptoms
Musculoskeletal: Reports No Symptoms
Neuro: Reports No Symptoms
Physical Exam
-
General: Well Developed, Well Nourished, No Apparent Distress, Comfortable and Conversant
HEENT: Normocephalic, Atraumatic, Anicteric, Agnew Conjunctivae and PERRLA
Respiratory: Clear to Auscultation and Non Labored Respirations
Cardiac: Regular Rhythm and S1/S2; Negative Murmur or Rub
Breast: Deferred by me
GI: Soft, Nontender, Nondistended and Normal Bowel Sounds
Musculoskeletal: No Clubbing, No Cyanosis and No Edema
Neuro: Awake and Alert; Negative Oriented
[2024-12-02 08:06] LABS: ALT (SGPT) 16 U/L (0-35); AST (SGOT) 25 U/L (14-36); Albumin 2.9 g/dl (3.5-5.0); Alkaline Phosphatase 84 U/L (38-126); Blood Urea Nitrogen 6 mg/dl (7-17); Calcium 9.2 mg/dl (8.4-10.2); Carbon Dioxide 27 mmol/L (22-30); Chloride 106 mmol/L (98-107); Estimated Creatinine Clearance 70 ml/min; Glucose 114 mg/dl (70-99); Potassium 3.5 mmol/L (3.5-5.1); Sodium 141 mmol/L (135-145); Total Bilirubin 0.4 mg/dl (0.2-1.3); Total Protein 5.6 g/dl (6.3-8.2); eGFR > 60.00
[2024-12-02 08:24] LABS: % Basophils 0.9 % (0-2); % Immature Granulocytes 0.5 % (0-0.5); % Lymphocytes 25.8 % (20.5-51.1); % Monocytes 9.1 % (1.7-9.3); % Neutrophils 58.7 % (42.2-75.2); Absolute Basophils 0.1 10^3/uL (0-0.2); Absolute Eosinophils 0.3 10^3/uL (0-0.7); Absolute Lymphocytes 1.7 10^3/uL (1.2-3.4); Absolute Monocytes 0.6 10^3/uL (0.1-0.6); Absolute Neutrophils 3.8 10^3/uL (1.4-6.5); Hematocrit 30.4 % (37.0-47.0); Hemoglobin 10.1 g/dL (12.0-16.0); Mean Corp Hgb Conc. 33.2 g/dL (33.0-37.0); Mean Corpuscular Hgb 30.7 pg (27.0-31.0); Mean Corpuscular Volume 92.4 fL (81.0-99.0); Mean Platelet Volume 11.1 fL (7.4-10.4); Nucleated Red Blood Cells % 0 %; Platelet Count 449 10^3/uL (130-400); Red Blood Cell Count 3.29 10^6/uL (4.20-5.40); Red Cell Dist. Width 13.9 % (11.5-14.5); White Blood Cell Count 6.4 10^3/uL (4.8-10.8)
[2024-12-02] MEDS: VITAMIN B-12 1000 MCG PO (08:36)
[2024-12-02] MEDS: TRIAMCINOLONE ACETONIDE 0.1% CREAM 1 APPLIC TOPICAL (08:36)
[2024-12-02] MEDS: VITAMIN B1 100 MG PO (08:36)
[2024-12-02] MEDS: NEURONTIN 200 MG PO (08:36)
[2024-12-02] MEDS: FOLVITE 1 MG PO (08:36)
--- NOTE | 2024-12-02 09:48 | CM ---
CM following re: discharge planning.
Reviewed pt's chart, met with pt and left a message to pt's son Fareed.
According to MD. Pt is medically stable to be discharged today. Pt is aware, expressed her agreement. IMM reviewed, placed on chart, pt has a copy.
Pt is a ocean transportation intermediary care resident at [facility] and a plan is for pt to return back to [facility].
A referral to [facility] made, spoke to liaison Giselle, pt is accepted for admission today and after 1:00 p.m. pick out hand time requested.
to arrange transportation, BLS with pick out hand time after 1:00 p.m. PMNC completed and left with .
[facility] nursing report: [phone]
Discharge instructions fax: [phone]
D/C plan: return back to [facility] for a assisted care.
[2024-12-02 11:25] VITALS: BP 142/96
[2024-12-02 11:51] LABS: Glucose - Point of Care 115 mg/dl (70-99)
--- NOTE | 2024-12-02 18:34 | W.DCSUMMARY ---
Addendum entered and electronically signed by Bobby Conti MD 12/02/24 23:10:
Read, reviewed, and agree. See same day progress note for additional details.
Sunny Conti MD
Original Note:
Documented by User: Victor Manuel Pugh MD, Resident 12/02/24 18:55
Discharge Summary
Discharge Data
Date of Admission: 12/01/24
Date of Discharge: 12/02/24
Total time spent discharging patient (in min): >30m
-
Pending Results: No
Hospital Course
Discharging Physician : Dr. Victor Manuel Pugh, Dr. Bobby Conti
Disposition : [facility]
Primary care physician : Dion De Oliveira
Principal Discharge diagnosis : Possible sepsis secondary to suspected healthcare-associate pneumonia
Chronic Discharge diagnosis : Probable Wernicke's encephalopathy vs. Korsakoff syndrome, ambulatory dysfunction, T2DM, ACD, essential hypertension, hyperlipidemia, peripheral neuropathy, h/o alcohol use disorder, h/o delirium tremens, vitamin b12
deficiency, chronic constipation
Hospital Course :
Joyce is a 68 year old female bought in from [facility] for complaints of fever and hypoxia to 84% on room air. She was initially requiring 2L NC oxygen on admission. Due to history of alcohol use and family uncertain as to alcohol
status, a blood alcohol level was done which was wnl. She was Flu/COVID negative. CXR on admission showed mild bibasilar atelectasis vs. pneumonia. She had leukocytosis and was febrile on admission. She was presumed sepsis as secondary to a
healthcare associated pneumonia and started on empiric antibiotics. Blood cultures were drawn which remained negative throughout admission. UA was clear. Subsequent procalcitonin was negative. After four days IV antibiotics were discontinued as she
remained afebrile, leukocytosis resolved, and she was weaned off of Oxygen support. She was found to be anemic during her admission for which iron studies were ordered which demonstrated a pattern for anemia of chronic disease. She was maintained on
B12/folate/thiamine supplementation given history of vitamin deficiency and alcohol use disorder. She remained awake and alert, but she was not oriented to place or time and had multiple instances of confabulation leading us to suspect Wernicke's
encephalopathy vs. Korsakoff syndrome. Further interviewing with family indicated that her last binge of alcohol was three weeks ago. Discussions were had between case management, hospital team and the son, and it was ultimately decided that she
would return to [facility]. She was taken by ambulance back to her retirement in the afternoon on 12/02/24.
All other chronic medical conditions were stable throughout admission unless otherwise mentioned above. There were no medication changes on discharge.
Important imaging findings :
CR Chest - 2 Views:
Mild bibasilar atelectasis or pneumonia.
Discharge Plan
-
Patient Disposition: Skilled Nursing/SNF
Discharge Diagnosis/Procedures: Sepsis secondary to pneumonia, acute hypoxic respiratory failure
Condition: Good
Diet: Diabetic, Carb Controlled
Activity: With assistance and With Walker
Driving Restrictions: As prior to admission
Bathing Restrictions: None
Activity Restrictions/Additional Instructions:
Not to be DC'd until seen by attending Dr. Conti
Referrals:
Dion De Oliveira MD [Family Provider] -
Prescriptions:
Continued
atorvastatin 40 mg Tablet
40 mg PO HS
clonidine HCl 0.1 mg Tablet
0.1 mg PO Q12H
acetaminophen 325 mg Tablet
650 mg PO Q4H MDD 3000mg PRN (Reason: mild pain,temp>101)
bisacodyl 10 mg Suppository
10 mg IL DAILY PRN (Reason: no BM in 24 hours after MOM)
Fleet Enema 19-7 gram/118 mL Enema
118 ml IL DAILYPRN PRN (Reason: no BM in 24 hours after Bisacodyl suppository)
folic acid 1 mg Tablet
1 mg PO DAILY
gabapentin 100 mg Capsule
200 mg PO Q8H
insulin lispro 100 unit/mL Insulin Pen
1 sliding scale dose SC ACHS
Rx Instructions:
150-200=2 units
201-250=4 units
251-300=6 units
301-350=8 units
351-400=10 units
diclofenac sodium 1 % Gel
2 g TOPICAL Q6HPRN PRN (Reason: bilateral hands)
thiamine HCl (vitamin B1) 100 mg Tablet
100 mg PO DAILY
triamcinolone acetonide 0.1 % Cream
1 applic TOPICAL BID
Rx Instructions:
Apply to the back and leg rash for 2 weeks. Start date 11/24/24.
magnesium hydroxide 400 mg/5 mL Suspension
30 ml PO [id number] PRN (Reason: constipation)
metformin 500 mg Tablet Extended Release 24hr
500 mg PO DAILY
cholecalciferol (vitamin D3) [Vitamin D3] 25 mcg (1,000 unit) Tablet
25 mcg PO DAILY
Discharge Orders:
Discharge Patient (As Directed); Ordered 12/02/24
Ordered By: Victor Manuel Pugh
Discharge Date and Time
Discharge Date/Time: 12/02/24 14:50
Print Language: BURMESE

Documented by User: Bobby Conti MD 12/02/24 23:06
Discharge Summary
Discharge Data
Date of Admission: 12/01/24
Date of Discharge: 12/02/24
Discharge Plan
-
Patient Disposition: Skilled Nursing/SNF
Discharge Diagnosis/Procedures: Sepsis secondary to pneumonia, acute hypoxic respiratory failure
Condition: Good
Diet: Diabetic, Carb Controlled
Activity: With assistance and With Walker
Driving Restrictions: As prior to admission
Bathing Restrictions: None
Activity Restrictions/Additional Instructions:
Not to be DC'd until seen by attending Dr. Conti
Referrals:
Dion De Oliveira MD [Family Provider] -
Prescriptions:
Continued
atorvastatin 40 mg Tablet
40 mg PO HS
clonidine HCl 0.1 mg Tablet
0.1 mg PO Q12H
acetaminophen 325 mg Tablet
650 mg PO Q4H MDD 3000mg PRN (Reason: mild pain,temp>101)
bisacodyl 10 mg Suppository
10 mg IL DAILY PRN (Reason: no BM in 24 hours after MOM)
Fleet Enema 19-7 gram/118 mL Enema
118 ml IL DAILYPRN PRN (Reason: no BM in 24 hours after Bisacodyl suppository)
folic acid 1 mg Tablet
1 mg PO DAILY
gabapentin 100 mg Capsule
200 mg PO Q8H
insulin lispro 100 unit/mL Insulin Pen
1 sliding scale dose SC ACHS
Rx Instructions:
150-200=2 units
201-250=4 units
251-300=6 units
301-350=8 units
351-400=10 units
diclofenac sodium 1 % Gel
2 g TOPICAL Q6HPRN PRN (Reason: bilateral hands)
thiamine HCl (vitamin B1) 100 mg Tablet
100 mg PO DAILY
triamcinolone acetonide 0.1 % Cream
1 applic TOPICAL BID
Rx Instructions:
Apply to the back and leg rash for 2 weeks. Start date 11/24/24.
magnesium hydroxide 400 mg/5 mL Suspension
30 ml PO [id number] PRN (Reason: constipation)
metformin 500 mg Tablet Extended Release 24hr
500 mg PO DAILY
cholecalciferol (vitamin D3) [Vitamin D3] 25 mcg (1,000 unit) Tablet
25 mcg PO DAILY
Discharge Orders:
Discharge Patient (As Directed); Ordered 12/02/24
Ordered By: Victor Manuel Pugh
Discharge Date and Time
Discharge Date/Time: 12/02/24 14:50
Print Language: BURMESE
== END 2024-12-02 14:50 | DRG 871 ==
LOC: 4 EAST ACU 09:15
PROVIDERS: Emergency Medicine; Student in an Organized Health Care Education/Training Program; ADMITTING PHYSICIAN Internal Medicine; ATTENDING PHYSICIAN Family Medicine; EMERGENCY PHYSICIAN Emergency Medicine; FAMILY PHYSICIAN Internal Medicine
DX: A41.9 Sepsis, unspecified organism (principal); J18.9 Pneumonia, unspecified organism; E51.2 Wernicke's encephalopathy; I10 Essential (primary) hypertension; E11.9 Type 2 diabetes mellitus without complications; E78.00 Pure hypercholesterolemia, unspecified; F10.20 Alcohol dependence, uncomplicated; E53.8 Deficiency of other specified B group vitamins; D63.8 Anemia in other chronic diseases classified elsewhere; Z79.84 Long term (current) use of oral hypoglycemic drugs
CPT/HCPCS: 71046; 80048; 80053; 80306; 81003; 81015; 82077; 82607; 82728; 82746; 82962; 83036; 83540; 83550; 83605; 84145; 85025; 85027; 87040; 87070; 87086; 87449; 87502; 87641; 87811; 92610; 94760; 96365; 96366; 96367; 97167; 97535; 99285